=== PATIENT | female | born 1955 | race American Indian/Alaskan Native ===

== ENCOUNTER 2018-06-07 03:55 | Emergency (ER) | payer OTHER ==
[2018-06-07] MEDS ORDERED: ASPIRIN PO ONE (04:04)
[2018-06-07 04:20] LABS: Basophils # (Auto) 0.1 K/mm3 (0.0-0.1); Basophils % (Auto) 0.8 % (0.0-1.8); Eosinophils # (Auto) 0.3 K/mm3 (0.0-0.4); Eosinophils % (Auto) 4.2 % (0.0-4.3); Hematocrit 36.2 % (30.3-42.9); Hemoglobin 11.6 gm/dl (10.1-14.3); Lymphocytes # (Auto) 3.1 K/mm3 (1.2-5.4); Lymphocytes % (Auto) 40.7 % (13.4-35.0); Mean Corpuscular HGB Conc 32 % (30-34); Mean Corpuscular Volume 81 fl (79-97); Monocytes # (Auto) 0.9 K/mm3 (0.0-0.8); Monocytes % (Auto) 11.6 % (0.0-7.3); Platelet Count 328 K/mm3 (140-440); Red Blood Count 4.49 M/mm3 (3.65-5.03); Red Cell Distribution Width 18.1 % (13.2-15.2)
--- NOTE | 2018-06-07 04:29 | XRay Report ---
PROCEDURE: XR CHEST 1V AP TECHNIQUE: Chest radiograph single view. HISTORY: Chest Pain COMPARISONS: None . FINDINGS: Heart: Normal. Mediastinum/Vessels: Normal. Lungs/Pleural space: Normal. Bony thorax: No acute osseous abnormality. Life support devices: None. IMPRESSION: No acute cardiopulmonary abnormality. This document is electronically signed by Niko Lutz MD., June 07 2018 04:27:00 AM ET
[2018-06-07 04:43] LABS: BUN/Creatinine Ratio 15; Blood Urea Nitrogen 9 mg/dL (7-17); Hemolysis Index 6
[2018-06-07] MEDS ORDERED: ATROVENT IH ONE (06:25)
[2018-06-07] MEDS ORDERED: PROVENTIL IH ONE (06:25)
[2018-06-07] MEDS ORDERED: VIBRAMYCIN PO ONE (06:26)
[2018-06-07] MEDS ORDERED: DELTASONE PO ONE (06:26)
--- NOTE | 2018-06-07 06:38 | Emergency Department Report ---
ED Chest Pain HPI - General Chief Complaint: Chest Pain Stated Complaint: CHEST PAIN Time Seen by Provider: 06/07/18 06:12 Source: patient, EMS Mode of arrival: Stretcher Limitations: No Limitations - History of Present Illness Initial Comments: Mrs. Jamison is a 62 yo female with hx of NIDDM who presents with cough, chest pain. Mrs. Jamison began with cold symptoms of productive cough white sputum on Sunday 6 days ago. Taking over the counter medication. Last night, she developed wheezing and chest pain. Chest pain left sided radiating to left arm. Occurred while resting in bed. Seems to be exacerbated by increased coughing. No hx of NV, HTN. Takes daily ASA. Several sick grandchilden at home. Former heavy smoker, stopped smoking several years ago. Has used inhaler in the past. No hx of asthma Followed at [facility] Complaint: chest pain -: Gradual Onset: during rest (laying in bed) Pain Location: substernal Pain Radiation: LUE Severity: moderate Severity scale (0 -10): 7 Quality: aching, sharp Consistency: now resolved Worsens With: other (cough) - Related Data Previous Rx's Medication Instructions Recorded Last Taken Type ALBUTEROL Inhaler(NF) [VENTOLIN 2 puff IH Q6H PRN #1 inha 06/07/18 Unknown Rx Inhaler(NF)] Doxycycline Hyclate [Vibramycin] 100 mg PO BID 7 Days #14 capsule 06/07/18 Unknown Rx predniSONE [Deltasone] 50 mg PO QDAY 3 Days #3 tab 06/07/18 Unknown Rx Allergies Allergy/AdvReac Type Severity Reaction Status Date / Time shellfish derived Allergy Severe Hives Verified 06/07/18 04:04 Heart Score - HEART Score History: Slightly suspicious EKG: Normal Age: 45-65 Risk factors: 1-2 risk factors Troponin: < normal limit HEART Score: 2 ED Review of Systems ROS: Stated complaint: CHEST PAIN Other details as noted in HPI Comment: All other systems reviewed and negative Constitutional: denies: fever, malaise Respiratory: cough, wheezing Cardiovascular: chest pain ED Past Medical Hx - Past Medical History Previous Medical History?: Yes Hx Hypertension: Yes Hx Diabetes: Yes - Surgical History Past Surgical History?: Yes Hx Appendectomy: Yes Additional Surgical History: hysterectomy, tonsillectomy - Social History Smoking Status: Never Smoker - Medications Home Medications: Home Medications Medication Instructions Recorded Confirmed Last Taken Type ALBUTEROL Inhaler(NF) [VENTOLIN 2 puff IH Q6H PRN #1 inha 06/07/18 Unknown Rx Inhaler(NF)] Doxycycline Hyclate [Vibramycin] 100 mg PO BID 7 Days #14 capsule 06/07/18 Unknown Rx predniSONE [Deltasone] 50 mg PO QDAY 3 Days #3 tab 06/07/18 Unknown Rx ED Physical Exam - General Limitations: No Limitations General appearance: alert, in no apparent distress, other (frequent harsh cough) - Head Head exam: Present: atraumatic, normocephalic - Eye Eye exam: Present: normal appearance - ENT ENT exam: Present: mucous membranes moist - Neck Neck exam: Present: normal inspection - Respiratory Respiratory exam: Present: wheezes, prolonged expiratory. Absent: respiratory distress, rales, rhonchi, accessory muscle use, decreased breath sounds - Cardiovascular Cardiovascular Exam: Present: regular rate, normal rhythm, normal heart sounds. Absent: systolic murmur, diastolic murmur, rubs, gallop - GI/Abdominal GI/Abdominal exam: Present: soft, normal bowel sounds. Absent: distended, ten derness - Extremities Exam Extremities exam: Present: normal inspection - Back Exam Back exam: Present: normal inspection - Neurological Exam Neurological exam: Present: alert, oriented X3 - Psychiatric Psychiatric exam: Present: normal affect, normal mood - Skin Skin exam: Present: warm, dry, intact, normal color. Absent: rash ED Course Vital Signs 06/07/18 06/07/18 06/07/18 04:00 04:01 04:29 Temperature 98.1 F 98.1 F 98 F Pulse Rate 58 L 58 L 69 Respiratory 16 16 17 Rate Blood Pressure 143/82 Blood Pressure 143/82 126/69 [Left] O2 Sat by Pulse 98 98 99 Oximetry 06/07/18 05:00 Temperature Pulse Rate 61 Respiratory 15 Rate Blood Pressure 130/71 Blood Pressure [Left] O2 Sat by Pulse 98 Oximetry ED Medical Decision Making - Lab Data Result diagrams: 06/07/18 04:08 06/07/18 04:08 Laboratory Results - last 24 hr 06/07/18 06/07/18 04:08 04:08 WBC 7.5 RBC 4.49 Hgb 11.6 Hct 36.2 MCV 81 MCH 26 L MCHC 32 RDW 18.1 H Plt Count 328 Lymph % (Auto) 40.7 H Conway % (Auto) 11.6 H Eos % (Auto) 4.2 Baso % (Auto) 0.8 Lymph # 3.1 Conway # 0.9 H Eos # 0.3 Baso # 0.1 Seg Neutrophils % 42.7 Seg Neutrophils # 3.2 Sodium 141 Potassium 3.8 Chloride 104.5 Carbon Dioxide 22 Anion Gap 18 BUN 9 Creatinine 0.6 L Estimated GFR > 60 BUN/Creatinine Ratio 15 Glucose 97 Calcium 9.0 Troponin T < 0.010 - EKG Data EKG shows normal: sinus rhythm, axis, intervals, QRS complexes, ST-T waves Rate: normal - EKG Data Interpretation: normal EKG - Radiology Data Radiology results: report reviewed CXR: NAP - Medical Decision Making Mrs. Jamison presents with cough and wheezing. Atypical chest pain at rest this morning. Do not suspect ACS. Low risk for ACS HEART score 2. Has impressive wheezing on exam. Suspect acute on chronic bronchitis. With hx of tobacco use and severe symptoms, antibiotics are indicated. Given nebs, steroids and antibiotics in ED. Serial troponin assays x 2 are normal. Dc'd with prescription for MDI, prednisone and doxycycline. Critical care attestation.: If time is entered above; I have spent that time in minutes in the direct care of this critically ill patient, excluding procedure time. ED Disposition Clinical Impression: Acute bronchitis Disposition: DC-01 TO HOME OR SELFCARE Is pt being admited?: No Does the pt Need Aspirin: No Condition: Stable Instructions: Acute Bronchitis (ED) Prescriptions: predniSONE [Deltasone] 50 mg PO QDAY 3 Days #3 tab ALBUTEROL Inhaler(NF) [VENTOLIN Inhaler(NF)] 2 puff IH Q6H PRN #1 inha PRN Reason: wheezing/cough Doxycycline Hyclate [Vibramycin] 100 mg PO BID 7 Days #14 capsule Referrals: [facility] MD ANDREZ [Primary Care Provider] - 3-5 Days
[2018-06-07] MEDS ORDERED: ASPIRIN ONE (06:45)
[2018-06-07 07:18] VITALS: BP 125/74
== END 2018-06-07 09:16 | disposition home or self-care (01) ==
LOC: ED 03:55
DX: J20.9 Acute bronchitis, unspecified (principal); I10 Essential (primary) hypertension; E11.9 Type 2 diabetes mellitus without complications
CPT/HCPCS: 36415; 71045; 80048; 83880; 84484; 85025; 93005; 93010; 94640; 99285; J7512